=== PATIENT | male | born 1990 | race Caucasian/White ===

== ENCOUNTER 2017-05-18 11:52 | Emergency (ER) | payer MEDICAID, OTHER ==
[~2017-05-18] VITALS: Ht 170.2 cm; Wt 63.5 kg
[~2017-05-18 11:52] MED LIST: ALPR0.25 PO; BUTA-234 PO; BUTA1TAB55 PO; HYDR1CAP2 PO; IBP800T PO; SULF1TAB35 PO
--- OUTSIDE RECORDS SUMMARY | 2017-05-18 12:01 | XMS REPORT ---
Author Author ROXI DUBOIS Organization [facility] Address [address] [place] [address] Care Team Providers Care Yoga Teacher Name Role Phone ROXI DUBOIS Unavailable PROBLEMS Type Condition ICD9-CM Code [id number] Code Onset Dates Condition Status SNOMED Code Problem Adjustment disorder with depressed mood 309.0 Active 39857260 Problem Generalized anxiety disorder 300.02 Active 57996827 Problem Encounter for dental examination Z01.20 Active 410400965 Problem Anxiety state, unspecified 300.00 Active 379545261 Problem Other and unspecified noninfectious gastroenteritis and colitis 558.9 Active 28724059 Problem Encounter for long-term (current) use of other medications V58.69 Active 450583400 Problem Hematemesis 578.0 Active 0391727 Problem Unspecified follow-up examination V67.9 Active 292499736 ALLERGIES Substance Reaction Event Type Date Status Penicillamine Unknown Drug Allergy Jun, Active Zoloft 50 Mg Tablet increased anger and mood lability Non Drug Allergy Jun, Active SOCIAL HISTORY No smoking Hx information available PLAN OF CARE Activity Details Follow Up prn Reason: VITAL SIGNS Height 68 in 2016-07-05 Weight 157 lbs 2016-07-05 Temperature 98 degrees Fahrenheit 2016-07-05 Heart Rate 92 bpm 2016-07-05 Respiratory Rate 16 2016-07-05 BMI 23.87 kg/m2 2016-07-05 Blood pressure systolic 136 mmHg 2016-07-05 Blood pressure diastolic 88 mmHg 2016-07-05 MEDICATIONS Medication Instructions Dosage Frequency Start Date End Date Duration Status Bactrim DS 800-160 MG Orally Twice a day 1 tablet 12h Jun, Jul, 10 day(s) Active RESULTS No Results PROCEDURES Procedure Date Ordered Related Diagnosis Body Site Office Visit, Est Pt., Level 3 Jul 05, 2016 IMMUNIZATIONS No Known Immunizations
--- OUTSIDE RECORDS SUMMARY | 2017-05-18 12:01 | XMS REPORT ---
Author Author VANESSA HELMS [facility] Address Unknown Care Team Providers Care Chief Concierge Name Role Phone SCOOTER VANESSA Unavailable PROBLEMS Type Condition ICD9-CM Code [id number] Code Onset Dates Condition Status SNOMED Code Problem Unspecified follow-up examination V67.9 Active 947133407 Problem Encounter for long-term (current) use of other medications V58.69 Active 047520245 Problem Encounter for dental examination Z01.20 Active 857999114 Problem Adjustment disorder with depressed mood 309.0 Active 33696774 Problem Other and unspecified noninfectious gastroenteritis and colitis 558.9 Active 41230243 Problem Hematemesis 578.0 Active 1301089 Problem Anxiety state, unspecified 300.00 Active 539580008 Problem Generalized anxiety disorder 300.02 Active 73457516 ALLERGIES Substance Reaction Event Type Date Status Penicillamine Unknown Drug Allergy Aug, Active Zoloft 50 Mg Tablet increased anger and mood lability Non Drug Allergy Aug, Active SOCIAL HISTORY No smoking Hx information available PLAN OF CARE Activity Details Follow Up prn Reason:prophy VITAL SIGNS Blood pressure systolic 124 mmHg 2016-08-18 Blood pressure diastolic 100-sufvv595 mmHg 2016-08-18 MEDICATIONS No Known Medications RESULTS No Results PROCEDURES Procedure Date Ordered Related Diagnosis Body Site LTD ORAL EVALUATION - PROBLEM FOCUS Aug 18, 2016 INTRAORL-PERIAPICAL 1 FILM 39170 Aug 18, 2016 EXTRAC ERUPTED TOOTH/EXPOSED ROOT Aug 18, 2016 BITEWING - SINGLE FILM Aug 18, 2016 IMMUNIZATIONS No Known Immunizations
--- OUTSIDE RECORDS SUMMARY | 2017-05-18 12:01 | XMS REPORT ---
Author Author MAGEN ZHANG [facility] Address [address] [place] [address] Care Team Providers Care Fast Food Services Manager Name Role Phone MAGEN ZHANG Unavailable PROBLEMS Type Condition ICD9-CM Code [id number] Code Onset Dates Condition Status SNOMED Code Assessment Encounter for dental examination Z01.20 28 Jul, 2016 Active 727441941 Problem Adjustment disorder with depressed mood 309.0 Active 00486609 Problem Generalized anxiety disorder 300.02 Active 86548338 Problem Encounter for dental examination Z01.20 Active 673311366 Problem Anxiety state, unspecified 300.00 Active 687459340 Problem Other and unspecified noninfectious gastroenteritis and colitis 558.9 Active 57619082 Problem Encounter for long-term (current) use of other medications V58.69 Active 967892487 Problem Hematemesis 578.0 Active 5532967 Problem Unspecified follow-up examination V67.9 Active 018364971 ALLERGIES Substance Reaction Event Type Date Status Penicillamine Unknown Drug Allergy Jul, Active Zoloft 50 Mg Tablet increased anger and mood lability Non Drug Allergy Jul, Active SOCIAL HISTORY No smoking Hx information available PLAN OF CARE VITAL SIGNS Heart Rate 86 bpm 2016-08-03 Blood pressure systolic 117 mmHg 2016-08-03 Blood pressure diastolic 64 mmHg 2016-08-03 MEDICATIONS Medication Instructions Dosage Frequency Start Date End Date Duration Status Diazepam 5 mg 1 Tablet by Oral route 1 time per day q HS 12 Feb, 2013 Active RESULTS No Results PROCEDURES Procedure Date Ordered Related Diagnosis Body Site INTRAORL-PERIAPICAL 1 FILM 30868 Aug 03, 2016 INTRAORL-PERIAPICAL EA ADD FILM Aug 03, 2016 INTRAORL-PERIAPICAL EA ADD FILM Aug 03, 2016 INTRAORL-PERIAPICAL EA ADD FILM Aug 03, 2016 BITEWINGS - FOUR FILMS Aug 03, 2016 IMMUNIZATIONS No Known Immunizations
--- NOTE | 2017-05-18 12:06 | ED Lower Extremity ---
General Chief Complaint: Lower Extremity Stated Complaint: PAIN INJ LT FOOT/ANK Source: patient Exam Limitations: no limitations History of Present Illness Time seen by provider: 12:05 Initial Comments To ER with pain to the lateral aspect of the left lower leg and foot. This began about an hour ago when he was working in a trailer and he fell out of the trailer but his foot seemed to stay in the trailer so he twisted the ankle quite a bit. He is ambulatory albeit with a big limp. Onset: just prior to arrival Severity: moderate Pain/Injury Location: left foot Method of Injury: twisted Modifying Factors: Worse With Movement Allergies and Home Medications Allergies Coded Allergies: Penicillins (Unverified Adverse Reaction, Mild, facial swelling, 02/28/11) Home Medications Diazepam 5 Mg Tablet, Unknown Dose PO, (Reported) Naproxen Sodium 550 Mg Tablet, Unknown Dose PO BID, (Reported) Constitutional: see HPI EENTM: see HPI Respiratory: no symptoms reported Cardiovascular: no symptoms reported Genitourinary: no symptoms reported Musculoskeletal: see HPI Skin: no symptoms reported Psychiatric/Neurological: No Symptoms Reported Past Zcaytnv-Orqunl-Ekskan Hx Patient Social History Recent Foreign Travel: No Contact w/Someone Who Travel: No Recent Hopitalizations: No Immunizations Up To Date Tetanus Booster (TDap): Less than 5yrs Date of Influenza Vaccine: Jul 07, 2011 Physical Exam Vital Signs Vital Sign - Last 12Hours 05/18/17 12:00 Temp 98.7 Pulse 91 Resp 18 B/P (MAP) 137/95 Pulse Ox 98 Capillary Refill : General Appearance: WD/WN, no apparent distress HEENT: PERRL/EOMI, normal ENT inspection Neck: non-tender, full range of motion Respiratory: no respiratory distress, no accessory muscle use Hips: bilateral hip non-tender, bilateral hip normal inspection, bilateral hip normal range of motion Legs: bilateral leg non-tender, bilateral leg normal inspection, bilateral leg normal range of motion Knees: bilateral knee non-tender, bilateral knee normal inspection, bilateral knee normal range of motion Ankles: left ankle pain, left ankle soft tissue tenderness, left ankle swelling Feet: bilateral foot non-tender, bilateral foot normal inspection, bilateral foot normal range of motion Neurologic/Psychiatric: alert, normal mood/affect, oriented x 3 Skin: normal color, warm/dry Progress/Results/Core Measures Results/Orders My Orders Orders - DEMETRA GOVEA APRN Tibia/Fibula, Left, 2 Views (05/18/17 12:04) Foot, Left, 3 Views (05/18/17 12:04) Crutches (05/18/17 12:37) Hydrocodone/Apap 5/325 Tablet (Lortab 5 (05/18/17 12:45) Ondansetron Oral Dissolve Tab (Zofran (05/18/17 12:45) Vital Signs/I&O Vital Sign - Last 12Hours 05/18/17 12:00 Temp 98.7 Pulse 91 Resp 18 B/P (MAP) 137/95 Pulse Ox 98 Departure Communication (Admissions) Progress Notes 1247- patient is now vomiting. States that he believes it to be from the pain because he is not otherwise feeling ill. My own impression of the x-ray of the foot and avulsion fracture of one of the the tarsal bones laterally. This is the area that he points to when he complains of pain. However there is no swelling or ecchymosis at the site. Impression Impression: Primary Impression: Avulsion fracture of ankle Disposition: 01 HOME, SELF-CARE Condition: Stable Departure-Patient Inst. Decision time for Depature: 12:50 Referrals: LEV SANCHEZ MD (PCP) Primary Care Physician [facility] (Family) Primary Care Physician TO [place] MD, DAVID G DPM GRANTHAM, JONATHAN MD OGDEN,OSITO BAILON,EMY HOFFMAN,KIARA Valentino MD Patient Instructions: Ankle Fracture (DC) Add. Discharge Instructions: 1. Follow-up with orthopedics 2. Pain medicine as directed 2. Keep the ankle elevated to help with swelling and reduce pain All discharge instructions reviewed with patient and/or family. Voiced understanding. Scripts Hydrocodone/Acetaminophen ([place] 5-325 Tablet) 1 Each Tablet 1 EACH PO Q4H Y for PAIN-SEVERE, #20 TAB Prov: DEMETRA GOVEA APRN 05/18/17 DEMETRA GOVEA APRN May 18, 2017 12:06
[2017-05-18] MEDS ORDERED: NAPR550T PO (12:12)
[2017-05-18] MEDS ORDERED: DIAZ5TAB3 PO (12:12)
[2017-05-18] MEDS ORDERED: ONDANSETRON 4 MG (ZOFRAN) ORAL DISSOLVE TAB PO ONE (12:45)
[2017-05-18] MEDS ORDERED: HYDROcodone/APAP 5 MG/325 MG (LORTAB) TAB PO ONE (12:45)
[2017-05-18] MEDS ORDERED: HYDR-757 PO (12:52)
--- NOTE | 2017-05-18 12:52 | Diagnostic Imaging Report ---
EXAMINATION: 2 views of the left tibia and fibula. INDICATION: Left leg pain after injury. FINDINGS: No fracture, dislocation or radiopaque foreign body seen. The proximal and distal joints appear unremarkable. IMPRESSION: Unremarkable exam. Dictated by: Dictated on workstation # [id number]
--- NOTE | 2017-05-18 12:53 | Diagnostic Imaging Report ---
EXAMINATION: 3 views of the left foot. INDICATION: Fall. FINDINGS: There is no fracture, dislocation or radiopaque foreign body. There is flattening of the plantar arch. IMPRESSION: Flattening of the plantar arch. No fracture seen. Dictated by: Dictated on workstation # [id number]
[2017-05-18 12:59] VITALS: BP 122/72
== END 2017-05-18 12:59 | disposition home or self-care (01) ==
LOC: EDUNIT# 11:52 → ER 11:57
DX: S82.892A Other fracture of left lower leg, initial encounter for closed fracture (principal); V68.3XXA Unspecified occupant of heavy transport vehicle injured in noncollision transport accident in nontraffic accident, initial encounter
CPT/HCPCS: 73590; 73630; 99283